=== PATIENT | female | born 1995 | race Caucasian/White ===

== ENCOUNTER 2019-01-02 19:00 | Emergency (ER) | payer OTHER, SELFPAY ==
[~2019-01-02] VITALS: Ht 170.2 cm; Wt 68.2 kg
[2019-01-02] MEDS ORDERED: dayquil PO (19:13)
[2019-01-02] MEDS ORDERED: ALBUTEROL SULFATE 2.5 MG/0.5 ML INH NEB SOLN NEB ONE (19:45)
[2019-01-02 20:22] VITALS: BP 118/65
[2019-01-02] MEDS ORDERED: AZITHROMYCIN 250 MG TAB PO ONE (20:30)
[2019-01-02] MEDS ORDERED: AZIT-12 PO (20:52)
[2019-01-02] MEDS ORDERED: TESS100C PO (20:52)
--- NOTE | 2019-01-03 08:08 | REP ---
CHEST PA AND LATERAL: 01/02/2019. Clinical history: Cough, pain with inspiration. Findings: There are no prior studies. Lungs are well inflated. The CP angles sharply defined without effusion. There is no lateral pleural thickening or apical scarring. Some minor peribronchial thickening in the perihilar regions may reflect some reactive airway disease or bronchitis but no dense consolidation with air bronchograms. The heart, mediastinal and hilar contours are normal. Aorta, airway and bony thorax unremarkable. No free air. Impression: 1. Some minor perihilar changes of bronchitis or reactive airway disease. No dense consolidation, pleural effusion, cardiomegaly, edema, atelectasis or mass. No pneumothorax. Bones intact. Electronically Signed by Ronnell Rosado MD 01/03/2019 09:27 A
== END 2019-01-02 21:00 | disposition home or self-care (01) ==
LOC: M ED 19:00
DX: J06.9 Acute upper respiratory infection, unspecified (principal)

== ENCOUNTER → 2019-02-21 | Outpatient (CLI) | payer OTHER ==
[~2019-02-21] MED LIST: AZIT-12 PO; TESS100C PO; dayquil PO
[2019-02-21 12:22] LABS: BASO # 0.1 10^3/uL (0.0-0.2); BASO % 1.4 % (0.0-1.0); EOS # 0.2 10^3/uL (0.0-0.50); EOS % 4.3 % (0.0-3.0); HEMATOCRIT 37.6 % (36.0-47.0); HEMOGLOBIN 12.3 g/dl (12.0-15.5); LYMPH % 39.8 % (24.0-44.0); MEAN CORPUSCULAR HEMOGLOBIN 29.6 pg (27.0-33.0); MEAN CORPUSCULAR HGB CONC 32.7 g/dl (32.0-36.5); MEAN CORPUSCULAR VOLUME 90.6 fl (80.0-96.0); MONO # 0.4 10^3/uL (0.0-0.8); MONO % 8.5 % (0.0-5.0); NEUTROPHILS # 2.2 10^3/uL (1.8-7.7); NEUTROPHILS % 45.6 % (36.0-66.0); PLATELET COUNT, AUTOMATED 196 10^3/uL (150-450); RED BLOOD COUNT 4.15 10^6/uL (4.00-5.40); WHITE BLOOD COUNT 4.9 10^3/uL (4.0-10.0)
[2019-02-21 12:58] LABS: ALBUMIN 3.9 GM/DL (3.2-5.2); ALT/SGPT 17 U/L (12-78); BILIRUBIN,TOTAL 0.5 MG/DL (0.2-1.0); BLOOD UREA NITROGEN 18 MG/DL (7-18); CALCIUM LEVEL 9.1 MG/DL (8.5-10.1); CARBON DIOXIDE LEVEL 26 MEQ/L (21-32); CHLORIDE LEVEL 109 MEQ/L (98-107); CREATININE FOR GFR 0.68 MG/DL (0.55-1.30); FERRITIN 8 NG/ML (8-252); FREE T4 0.74 NG/DL (0.76-1.46); GLOMERULAR FILTRATION RATE > 60.0 (>60); GLUCOSE, FASTING 82 MG/DL (70-100); IRON (FE) 86 UG/DL (50-170); PERCENT SATURATION 22.6 % (13.2-45.0); POTASSIUM SERUM 4.4 MEQ/L (3.5-5.1); SODIUM LEVEL 140 MEQ/L (136-145); THYROID STIMULATING HORMONE 0.854 uIU/ML (0.358-3.740); TOTAL IRON BINDING CAPACITY 381 UG/DL (250-450); TOTAL PROTEIN 7.1 GM/DL (6.4-8.2)
[2019-02-21 12:59] LABS: FOLLICLE STIMULATING HORMONE 3.3 mIU/mL; LUTEINIZING HORMONE 1.2 mIU/mL; PROLACTIN 12.3 NG/ML
== END ==
LOC: M WUC 10:29
PROVIDERS: ATTEND Physician Assistant
DX: N64.52 Nipple discharge (principal); D64.9 Anemia, unspecified

== ENCOUNTER → 2019-07-01 | Outpatient (CLI) | payer OTHER ==
--- NOTE | 2019-07-01 15:55 | REP ---
OBSTETRIC SONOGRAPHY: HISTORY: Supervision of for anatomy. FINDINGS: Scanning through the gravid uterus demonstrates a viable single intrauterine gestation in a variable lie. motion is observed and heart rate is recorder 132 beats per minute. An anterior placenta is seen grade 0 without evidence of previa or abruption. Amniotic fluid is subjectively normal. Closed cervical length measures 4.5 cm. No extrauterine abnormality is observed. The anterior inferior placental tip is 2.9 cm from the internal cervical os. No anomaly is seen. The following anatomic structures are identified and felt to be unremarkable: cranium, choroid plexus, cavum, cerebellum and posterior fossa, face and profile, lungs, four-chamber heart with left and right ventricular outflow tract views, diaphragm, left-sided stomach, abdominal wall cord insertion, three-vessel umbilical cord, kidneys and bladder, spine, upper and lower extremities. Biometry Chart: BPD 4.5 cm = 19 weeks 3 days HC 15.7 cm = 18 weeks 4 days AC 13.5 cm = 19 weeks 0 days FL 2.9 cm = 18 weeks 5 days HL 2.7 cm = 18 weeks 5 days CD 1.9 cm = 18 weeks 4 days HC/AC ratio normal 1.16. Cephalic index normal 0.82. Estimated weight 262 grams, 0 pounds 9 ounces, 78th percentile for 18 weeks 1 day. IMPRESSION: Viable single intrauterine gestation at 18 weeks 6 days by today's composite sonographic criteria. NANDO by today's sonography November 26, 2019. No abnormality noted. Electronically Signed by Marco Nixon MD 07/01/2019 03:29 P
== END ==
LOC: M RAD 12:42
PROVIDERS: ATTEND Advanced Practice Midwife
DX: Z34.82 Encounter for supervision of other normal pregnancy, second trimester (principal)

== ENCOUNTER → 2019-08-26 | Outpatient (CLI) | payer OTHER ==
[2019-08-26 13:24] LABS: HEMATOCRIT 34.3 % (36.0-47.0); HEMOGLOBIN 11.3 g/dl (12.0-15.5); MEAN CORPUSCULAR HEMOGLOBIN 31.2 pg (27.0-33.0); MEAN CORPUSCULAR HGB CONC 32.9 g/dl (32.0-36.5); MEAN CORPUSCULAR VOLUME 94.8 fl (80.0-96.0); PLATELET COUNT, AUTOMATED 256 10^3/uL (150-450); RED BLOOD COUNT 3.62 10^6/uL (4.00-5.40)
== END ==
LOC: M SMT 08:45
PROVIDERS: ATTEND Advanced Practice Midwife
DX: Z34.82 Encounter for supervision of other normal pregnancy, second trimester (principal); Z3A.00 Weeks of gestation of pregnancy not specified

== ENCOUNTER → 2019-11-04 | Outpatient (REF) | payer OTHER | LOC: M SFHCWAGY 16:51 | PROVIDERS: ATTEND Advanced Practice Midwife | DX: Z36.85 Encounter for antenatal screening for Streptococcus B (principal) ==

== ENCOUNTER → 2019-11-14 | Outpatient (CLI) | payer OTHER | LOC: M PLALAB 14:16 | PROVIDERS: ATTEND Advanced Practice Midwife | DX: Z34.83 Encounter for supervision of other normal pregnancy, third trimester (principal) ==

== ENCOUNTER 2019-11-17 21:10 | Outpatient (CLI) | payer OTHER ==
[~2019-11-17] VITALS: Ht 172.7 cm; Wt 105.1 kg
[2019-11-17] MEDS ORDERED: LACTATED RINGER'S 1000 ML IV STA (21:47)
[2019-11-17] MEDS ORDERED: LR 1,000 ML IV SCH (21:47)
[2019-11-17] MEDS ORDERED: ACETAMINOPHEN 500 MG TAB PO ONE (22:00)
[2019-11-17] MEDS ORDERED: ONDANSETRON 4MG/2ML VIAL (J2405) IV PRN (22:30)
[2019-11-17 23:06] LABS: HEMATOCRIT 31.5 % (36.0-47.0); MEAN CORPUSCULAR HEMOGLOBIN 27.5 pg (27.0-33.0); MEAN CORPUSCULAR HGB CONC 31.7 g/dl (32.0-36.5); MEAN CORPUSCULAR VOLUME 86.5 fl (80.0-96.0); PLATELET COUNT, AUTOMATED 214 10^3/uL (150-450); RED BLOOD COUNT 3.64 10^6/uL (4.00-5.40); WHITE BLOOD COUNT 8.8 10^3/uL (4.0-10.0)
[2019-11-17 23:25] LABS: ALBUMIN 2.6 GM/DL (3.2-5.2); ALT/SGPT 13 U/L (12-78); BILIRUBIN,TOTAL 0.3 MG/DL (0.2-1.0); BLOOD UREA NITROGEN 10 MG/DL (7-18); CALCIUM LEVEL 7.8 MG/DL (8.5-10.1); CARBON DIOXIDE LEVEL 25 MEQ/L (21-32); CHLORIDE LEVEL 107 MEQ/L (98-107); CREATININE FOR GFR 0.78 MG/DL (0.55-1.30); GLOMERULAR FILTRATION RATE > 60.0 (>60); GLUCOSE, FASTING 91 MG/DL (70-100); POTASSIUM SERUM 3.8 MEQ/L (3.5-5.1); SODIUM LEVEL 138 MEQ/L (136-145); TOTAL PROTEIN 6.5 GM/DL (6.4-8.2)
--- NOTE | 2019-11-18 07:35 | IPN ---
DATE: 11/17/2019 25-year-old female at 38 and 0/7 weeks gestation by LMP EDC 12/01/2019. Presents with diarrhea for the last 24 hours. She has had some cramping in the abdomen as well. She feels nauseated. Her had a case of possible food poisoning and has been vomiting for the last 2 days. They both had eaten at [employer] and feel that it may have come from there. OBJECTIVE: Blood pressure 134/74, pulse 84, temperature 100.0. She appears mildly uncomfortable. Head and neck exam is normal. Lungs are clear. Heart regular rate and rhythm. Abdomen is nontender and gravid. heart tones category 1 contractions every 3-5 minutes, mild. Sterile vagina exam 1 cm 50%-30 posterior moderate consistency. Extremities are nontender. ASSESSMENT: 25-year-old female 38 and 0/7 weeks gestation with probable viral gastroenteritis. PLAN: The patient will receive IV fluid and check labs for metabolic profile. We will observe the patient and provide supportive treatment.
[2019-11-30] MEDS ORDERED: PRENTAB9 PO (08:04)
[2019-12-02] MEDS ORDERED: IBUP80TA PO (07:38)
[2019-12-02] MEDS ORDERED: ACET-683 PO (07:38)
== END 2019-11-18 05:55 | disposition home or self-care (01) ==
LOC: M LDO 21:10 → M LDI 22:30 → M LDO 11-18 05:55
PROVIDERS: ATTEND Specialist
DX: O26.893 Other specified pregnancy related conditions, third trimester (principal); R10.30 Lower abdominal pain, unspecified; R19.7 Diarrhea, unspecified; R11.0 Nausea; Z3A.38 38 weeks gestation of pregnancy
CPT/HCPCS: 36415; 59025; 80053; 85027; G0378; G0463; J2405

== ENCOUNTER → 2019-11-18 | Outpatient (CLI) | payer OTHER ==
--- NOTE | 2019-11-18 10:38 | REP ---
Clinical: Growth evaluation. Comparison: 07/01/2019 . Findings: Examination demonstrates a single live intrauterine in cephalic presentation. motion is identified by technologist. Placenta is noted anterior and grade three without evidence for placenta previa or abruption. Amniotic fluid volume is normal. Cervix measures 3.4 cm in length and appears closed. Gestational age by LMP 38 weeks 1 day with NANDO 12/01/2019 . Gestational age by current measurements 38 weeks 1 day with NANDO 12/01/2019 . FHR equals 152 beats per minute. Estimated weight 3465 grams ( 62nd percentile). Amniotic fluid index: 18.0 cm Impression: Single live advanced gestation in cephalic presentation demonstrating appropriate interval growth.
== END ==
LOC: M WHC 09:33
PROVIDERS: ATTEND Advanced Practice Midwife
DX: O26.849 Uterine size-date discrepancy, unspecified trimester (principal)

== ENCOUNTER 2020-01-06 21:14 | Emergency (ER) | payer OTHER ==
[~2020-01-06] VITALS: Ht 167.6 cm; Wt 91.5 kg
[~2020-01-06 21:14] MED LIST changes: +ACET-683 PO; +IBUP80TA PO; +PRENTAB9 PO
[2020-01-06 22:52] LABS: BASO # 0.1 10^3/uL (0.0-0.2); BASO % 1.1 % (0.0-1.0); EOS # 0.3 10^3/uL (0.0-0.5); EOS % 4.4 % (0.0-3.0); HEMATOCRIT 32.3 % (36.0-47.0); LYMPH # 2.8 10^3/uL (1.5-5.0); LYMPH % 43.1 % (24.0-44.0); MEAN CORPUSCULAR HEMOGLOBIN 26.1 pg (27.0-33.0); MEAN CORPUSCULAR VOLUME 84.3 fl (80.0-96.0); MONO # 0.7 10^3/uL (0.0-0.8); MONO % 11.6 % (0.0-5.0); NEUTROPHILS # 2.5 10^3/uL (1.5-8.5); NEUTROPHILS % 39.6 % (36.0-66.0); PLATELET COUNT, AUTOMATED 308 10^3/uL (150-450); RED BLOOD COUNT 3.83 10^6/uL (4.00-5.40); WHITE BLOOD COUNT 6.4 10^3/uL (4.0-10.0)
[2020-01-06] MEDS ORDERED: NS 1,000 ML IV ONE (23:15)
[2020-01-06 23:24] LABS: CK-MB VALUE MASS < 1.0 NG/ML (<3.6); CPK CREATINE PHOSPHOKINASE 100 U/L (26-192); TROPONIN I < 0.02 NG/ML (< 0.10)
[2020-01-07 00:59] LABS: ALBUMIN 3.7 GM/DL (3.2-5.2); ALT/SGPT 17 U/L (12-78); BILIRUBIN,DIRECT 0.1 MG/DL (0.0-0.2); BILIRUBIN,TOTAL 0.3 MG/DL (0.2-1.0); LIPASE 168 U/L (73-393); TOTAL PROTEIN 7.3 GM/DL (6.4-8.2)
[2020-01-07] MEDS ORDERED: KETOROLAC 30 MG/ML VIAL (J1885) IV ONE (01:30)
[2020-01-07] MEDS ORDERED: MACR100C43 PO (02:26)
[2020-01-07] MEDS ORDERED: NITROFURANTOIN (MACROBID) 100 MG CAP PO ONE (02:30)
[2020-01-07 02:37] VITALS: BP 118/74
--- NOTE | 2020-01-08 20:39 | ECGEPIP ---
[facility] - ED Test Date: 2020-01-06 Pat Name: GINA FLORES Department: Room: - Gender: Female Life Scientist: ashwin : [id number] Requested By: SHI Clement Order Number: [id number] Reading MD: Irma Castillo Measurements Intervals [place] Rate: 61 P: 50 MS: 151 QRS: 56 QRSD: 86 T: 46 QT: 405 QTc: 411 Interpretive Statements SINUS RHYTHM WITH MARKED SINUS ARRHYTHMIA NO PRIOR Electronically Signed on 01-08-2020 20:39:49 EST by Irma Castillo
== END 2020-01-07 02:40 | disposition home or self-care (01) ==
LOC: M ED 21:14
DX: N39.0 Urinary tract infection, site not specified (principal); D58.2 Other hemoglobinopathies; R07.89 Other chest pain; I49.9 Cardiac arrhythmia, unspecified; R94.31 Abnormal electrocardiogram [ECG] [EKG]; Z91.02 Food additives allergy status
CPT/HCPCS: 71046; 80047; 80076; 81001; 82550; 82553; 83690; 84484; 84702; 85025; 85379; 87086; 93005; 96361; 96374; 99284; J1885

== ENCOUNTER → 2020-02-02 | Outpatient (REF) | payer OTHER ==
[~2020-02-02] MED LIST changes: +MACR100C43 PO
== END ==
LOC: M LAB REF 17:03
PROVIDERS: ATTEND Physician Assistant
DX: N39.0 Urinary tract infection, site not specified (principal)

== ENCOUNTER → 2021-01-04 | Outpatient (REF) | payer OTHER | LOC: M LAB REF 14:01 | PROVIDERS: ATTEND Family Medicine | DX: N76.0 Acute vaginitis (principal) ==